=== PATIENT | female | born 1945 | race African-American/Black ===

== ENCOUNTER 2017-02-13 11:50 | Observation (INO) | payer MEDICARE, MEDICAID ==
[2017-02-13] VITALS (9 sets, daily range): BP systolic 95–161; BP diastolic 53–81; PULSE 75–91; RESP 16–18; TEMP 97.7–98.1; O2SAT 92–100
[~2017-02-13] VITALS: Ht 157.5 cm; Wt 72.0 kg
[~2017-02-13 11:50] MED LIST: ADVA250A INH; ASPI81 PO; CITA20TA4 PO; CLAR10TA7 PO; DILT240C7 PO; DUONI NEB; FERR324T4 PO; FLON0.053 EACH NARE; GLUC1000 PO; GNP3TAB PO; ISOS60 PO; KEPP1000 PO; LAMI25TA3 PO; LASI20TA PO; MAPA325T6 PO; MONT10TA2 PO; OMEP20TA39 PO; POLY99.0 EACH EYE; QUET400T PO; RISP3TAB23 PO; ROBISYP6 PO; SENN8.6T8 PO; STOO100C PO; TRUS2SOL LEFT EYE; VICT18IN SQ; VITA-13 PO
[2017-02-13] MEDS ORDERED: SODIUM CHLOR 0.9% 1000 ML INJ 1,000 ML IV ONE (12:01)
[2017-02-13 12:35] LABS: AUTOMATED NEUTROPHIL # 5.3 TH/MM3 (1.8-7.7); BASOPHIL % 0.6 % (0.0-2.0); EOSINOPHIL # 0.2 TH/MM3 (0-0.4); EOSINOPHIL % 2.6 % (0.0-4.0); HEMATOCRIT 41.5 % (35.0-46.0); HEMO FLAGS DIFF FINAL; LYMPH % 11.4 % (9.0-44.0); LYMPHOCYTE # 0.8 TH/MM3 (1.0-4.8); MEAN CELL VOLUME 92.4 FL (80.0-100.0); MEAN CORPUSCULAR HEMOGLOBIN 30.2 PG (27.0-34.0); MEAN CORPUSCULAR HGB CONC 32.7 % (32.0-36.0); MONO % 10.3 % (0.0-8.0); NEUT % 75.1 % (16.0-70.0); PLATELET COUNT 221 TH/MM3 (150-450); RED BLOOD COUNT 4.49 MIL/MM3 (4.00-5.30); RED CELL DISTRIBUTION WIDTH 14.1 % (11.6-17.2)
[2017-02-13 12:44] LABS: BACTERIA, URINE RARE /hpf; BLOOD, URINE NEG (NEG); COMMENT (UR) CATH-CULTURE IND; CULTURE IF INDICATED CATH CULTURE IND; GLUCOSE,URINE NEG (NEG); HYALINE CAST, URINE 22 /lpf (RARE); KETONE, URINE NEG (NEG); MUCUS URINE FEW /lpf (OCC); NITRITE,URINE NEG (NEG); PH, URINE 5.5 (5.0-8.5); SQUAMOUS EPITHELIAL CELL URINE 1 /hpf (0-5); URINE COLOR YELLOW (YELLW/STRAW)
[2017-02-13 12:45] LABS: APTT (PATIENT) 22.6 SEC (24.3-30.1); PROTHROMBIN TIME - PATIENT 10.8 SEC (9.8-11.6)
--- NOTE | 2017-02-13 12:58 | RADRPT ---
EXAM DATE/TIME: 02/13/2017 12:32 [facility] COMPARISON: CHEST SINGLE AP, May 14, 2015, 1:25. INDICATIONS : Syncope, fall, short of breath, palpitations MEDICAL HISTORY : unobtainable SURGICAL HISTORY : unobtainable ENCOUNTER: Initial ACUITY: 1 day PAIN SCORE: Non-responsive. LOCATION: Bilateral chest FINDINGS: A single view of the chest demonstrates the lungs to be symmetrically aerated without evidence of mas s, infiltrate or effusion. The cardiomediastinal contours revealed persistent borderline cardiomegal y.. Osseous structures are intact with degenerative changes of the bilateral glenohumeral joints.. CONCLUSION: No acute disease. No significant change has occurred. Jack Jacobo MD on February 13, 2017 at 12:56 Board Certified Radiologist. This report was verified electronically.
[2017-02-13 13:01] LABS: ALT (GPT) 12 U/L (10-53); ANION GAP 6 MEQ/L (5-15); AST (GOT) 8 U/L (15-37); BICARBONATE 25.8 MEQ/L (21.0-32.0); BLOOD UREA NITROGEN 9 MG/DL (7-18); CHLORIDE 110 MEQ/L (98-107); GLOMERULAR FILTRATION RATE 38 ML/MIN (>89); MAGNESIUM 2.2 MG/DL (1.5-2.5); POTASSIUM 4.2 MEQ/L (3.5-5.1); SODIUM (NA) 142 MEQ/L (136-145)
--- NOTE | 2017-02-13 13:03 | PD ---
HPI Chief Complaint: Syncope/Near-Syncope Time Seen by Provider: 12:03 Travel History International Travel<30 days: No Contact w/Intl Traveler<30days: No Traveled to known affect area: No History of Present Illness HPI 71-year-old female with a history of parents schizophrenia, seizure disorder, CAD that presents to the ED for evaluation of possible syncopal episode with seizure. History is limited as patient herself is a poor historian secondary to her schizophrenia. She cannot really give me a good history. Whenever I ask if she has a history of seizures she states no, she also does not appear to really know her medical history. Most of the history is obtained from the ambulance provider as well as ED nurse and paperwork from the long-term. Per report apparently patient was getting to stand up and she looked like she was falling asleep while standing and she had a syncopal episode. Apparently she did hit her head when she fell and afterwards she possibly had a seizure. She also defecated on herself. Per her report she apparently is noncompliant with her medications especially the seizure medications. Unclear as to why. She does live in assisted living facility. She is a full code. She states that she has pain "everywhere ". She does not appear to be in a lot of pain however and is able to move all joints with no obvious sign of acute disease. She does appear to have some bruising on the back of the head. She smells of feces. Again history is limited. She does take aspirin but no other blood thinners. Of note per ambulance patient did have some low blood pressures and her highest systolic was 95 with IV fluids. PFSH Past Medical History Anemia: Yes Arthritis: No Asthma: Yes Autoimmune Disease: No Blood Disorders: No Anxiety: Yes Depression: Yes Heart Rhythm Problems: No Cancer: No Cardiovascular Problems: Yes High Cholesterol: Yes Chemotherapy: Yes Chest Pain: Yes Congestive Heart Failure: No COPD: Yes Cerebrovascular Accident: Yes Coronary Artery Disease: Yes Dementia: Yes Diabetes: Yes Diminished Hearing: No Endocrine: No GERD: No Glaucoma: No Genitourinary: No Headaches: Yes Hepatitis: No Hiatal Hernia: No Hypertension: Yes Immune Disorder: No Kidney Stones: No Musculoskeletal: No Neurologic: No Psychiatric: Yes (hx of paranoid schizophrenia noted in earlier adm assmt) Reproductive: No Respiratory: Yes Immunizations Current: Yes Myocardial Infarction: Yes Radiation Therapy: No Renal Failure: No Schizophrenia: Yes (PARANOID WITH PSYCHOSIS) Seizures: Yes Sickle Cell Disease: No Sleep Apnea: No Thyroid Disease: No Ulcer: No Past Surgical History Abdominal Surgery: No AICD: No Cardiac Surgery: No Ear Surgery: No Endocrine Surgery: No Eye Surgery: No Genitourinary Surgery: No Gynecologic Surgery: No Joint Replacement: No Oral Surgery: No Pacemaker: No Thoracic Surgery: No Social History Alcohol Use: No Tobacco Use: No Substance Use: No Allergies-Medications (Allergen,Severity, Reaction): Coded Allergies: ramipril (Verified Allergy, Mild, ANGIOEDEMA, 02/13/17) Reported Meds & Prescriptions Reported Meds & Active Scripts Active Reported Vitamin D-1000 (Cholecalciferol) 1,000 Unit Tab 1,000 Units PO DAILY Victoza Inj (Liraglutide Inj) 18 Mg/3 Ml Pen 1.8 Mg SQ DAILY Trusopt Opth Drops (Dorzolamide HCl) 2% Soln 1 Drop LEFT EYE TID Singulair (Montelukast Sodium) 10 Mg Tab 10 Mg PO HS Senna-S 8.6-50 mg (Sennosides-Docusate Sodium) 8.6 Mg-50 Mg Tab Risperdal (Risperidone) 3 Mg Tab 3 Mg PO Q12HR Risperdal Consta Inj (Risperidone) 50 Mg/2 Ml Inj 50 Mg IM Q14D Quetiapine (Quetiapine Fumarate) 400 Mg Tab 400 Mg PO HS Metformin (Metformin HCl) 850 Mg Tab 850 Mg PO BIDPC With meals Melatonin 5 Mg Tab 3 Mg PO HS Lasix (Furosemide) 20 Mg Tab 20 Mg PO DAILY Lamictal (Lamotrigine) 150 Mg Tab 150 Mg PO BID Keppra (Levetiracetam) 750 Mg Tab 750 Mg PO BID Isosorbide Mononitrate 20 Mg Tab 60 Mg PO DAILY Take 2 doses 7 hours apart. Citalopram (Citalopram Hydrobromide) 20 Mg Tab 20 Mg PO DAILY Cardizem (Diltiazem HCl) 120 Mg Tab 120 Mg PO BID Aspirin 81 Mg Chew 81 Mg CHEW DAILY Tylenol (Acetaminophen) 325 Mg Tab 650 Mg PO Q6H PRN [abh topical gel ] TOPICAL Q6HR Review of Systems Except as stated in HPI: all other systems reviewed are Neg Physical Exam Narrative GENERAL: SKIN: Warm and dry. HEAD: Atraumatic. Normocephalic. EYES: Pupils equal and round. No scleral icterus. No injection or drainage. ENT: No nasal bleeding or discharge. Mucous membranes pink and moist. Tongue is midline. No uvula deviation. NECK: Trachea midline. No JVD. CARDIOVASCULAR: Regular rate and rhythm. No murmurs, S3, S4. RESPIRATORY: No accessory muscle use. Clear to auscultation. Breath sounds equal bilaterally. GASTROINTESTINAL: Abdomen soft, non-tender, nondistended. Hepatic and splenic margins not palpable. MUSCULOSKELETAL: Extremities without clubbing, cyanosis, or edema. No obvious deformities. Full range of motion of the upper and lower extremities but no obvious sign of deformity. 2+ pulses bilaterally. No obvious lumbar, thoracic spine tenderness to palpation. NEUROLOGICAL: Awake and alert and oriented times 2. No obvious cranial nerve deficits. Motor grossly within normal limits. Five out of 5 muscle strength in the arms and legs. Normal speech. PSYCHIATRIC: Appropriate mood and affect; insight and judgment minimal. Data Data Last Documented VS Vital Signs Date Time Temp Pulse Resp B/P (MAP) Pulse Ox O2 Delivery O2 Flow Rate FiO2 02/13/17 14:33 97.8 76 17 125/68 (87) 100 Room Air Orders Orders Electrocardiogram (02/13/17 12:01) Complete Blood Count With Diff (02/13/17 12:01) Comprehensive Metabolic Panel (02/13/17 12:01) Magnesium (Mg) (02/13/17 12:01) Ckmb (Isoenzyme) Profile (02/13/17 12:01) Troponin I (02/13/17 12:01) Act Partial Throm Time (Ptt) (02/13/17 12:01) Prothrombin Time / Inr (Pt) (02/13/17 12:01) Urinalysis - C+S If Indicated (02/13/17 12:01) Chest, Single Ap (02/13/17 12:01) Ct Brain W/O Iv Contrast(Rout) (02/13/17 12:01) Ct Cerv Spine W/O Contrast (02/13/17 12:01) Ecg Monitoring (02/13/17 12:01) Iv Access Insert/Monitor (02/13/17 12:01) Oximetry (02/13/17 12:01) Sodium Chlor 0.9% 1000 Ml Inj (Ns 1000 M (02/13/17 12:01) Orthostatic Vital Signs (02/13/17 12:01) Levetiracetam (02/13/17 12:01) Lamictal (Lamotrigine) (02/13/17 12:01) C Diff Toxin Pcr (02/13/17 12:24) Urine Culture (02/13/17 12:08) Hip, Uni(Ap&Lat) W Ap Pelvis (02/13/17 ) Hip, Uni(Ap&Lat) Wo Ap Pelvis (02/13/17 ) Spine, Lumbar Comp W/Obliq (02/13/17 ) CKMB (02/13/17 12:08) CKMB% (02/13/17 12:08) Ondansetron Inj (Zofran Inj) (02/13/17 13:45) Place In Observation (02/13/17 ) Vital Signs (Adult) Q4H (02/13/17 15:20) Activity Oob Ad Shell (02/13/17 15:20) Bedside Glucose FERDINAND.CSUGAR (02/13/17 15:20) Nocturnist Physician / Telemetry .CONTINUOUS (02/13/17 15:20) Intake + Output FERDINAND.QSHIFT (02/13/17 15:20) Notify Dr: Other (02/13/17 15:20) Diet Npo (02/13/17 Dinner) Sodium Chlor 0.9% 1000 Ml Inj (Ns 1000 M (02/13/17 15:20) Sodium Chloride 0.9% Flush (Ns Flush) (02/13/17 15:30) Sodium Chloride 0.9% Flush (Ns Flush) (02/13/17 21:00) Acetaminophen (Tylenol) (02/13/17 15:30) Ondansetron Inj (Zofran Inj) (02/13/17 15:30) Basic Metabolic Panel (Bmp) (02/14/17 06:00) Comprehensive Metabolic Panel (02/14/17 06:00) Creatine Kinase (Cpk) (02/13/17 15:20) Creatine Kinase (Cpk) (02/13/17 21:20) Troponin I (02/13/17 15:20) Troponin I (02/13/17 21:20) Resp Oxygen Benjamin C Titrat 1-4 L (02/13/17 ) Speech Therapy Consult-Eval/Tx (02/13/17 15:20) Case Management Consult (02/13/17 15:20) Scd Bilateral/Knee High FERDINAND.BID (02/13/17 15:20) Naloxone Inj (Narcan Inj) (02/13/17 15:30) Docusate Sodium-Senna (Misty-Colace) (02/13/17 21:00) Magnesium Hydroxide Liq (Milk Of Magnesi (02/13/17 15:30) Sennosides (Senokot) (02/13/17 15:30) Bisacodyl Supp (Dulcolax Supp) (02/13/17 15:30) Lactulose Liq (Lactulose Liq) (02/13/17 15:30) Eeg Study (02/13/17 ) Admit Order (Ed Use Only) (02/13/17 15:24) Ot Request For Service (02/13/17 15:25) Pt Request For Service (02/13/17 15:25) Insulin Human Reg Supp Scale (Novolin R (02/13/17 17:00) Labs Laboratory Tests Test 02/13/17 12:08 White Blood Count 7.0 TH/MM3 Red Blood Count 4.49 MIL/MM3 Hemoglobin 13.6 GM/DL Hematocrit 41.5 % Mean Corpuscular Volume 92.4 FL Mean Corpuscular Hemoglobin 30.2 PG Mean Corpuscular Hemoglobin Concent 32.7 % Red Cell Distribution Width 14.1 % Platelet Count 221 TH/MM3 Mean Platelet Volume 7.2 FL Neutrophils (%) (Auto) 75.1 % Lymphocytes (%) (Auto) 11.4 % Monocytes (%) (Auto) 10.3 % Eosinophils (%) (Auto) 2.6 % Basophils (%) (Auto) 0.6 % Neutrophils # (Auto) 5.3 TH/MM3 Lymphocytes # (Auto) 0.8 TH/MM3 Monocytes # (Auto) 0.7 TH/MM3 Eosinophils # (Auto) 0.2 TH/MM3 Basophils # (Auto) 0.0 TH/MM3 CBC Comment DIFF FINAL Differential Comment Prothrombin Time 10.8 SEC Prothromb Time International Ratio 1.0 RATIO Activated Partial Thromboplast Time 22.6 SEC Urine Color YELLOW Urine Turbidity HAZY Urine pH 5.5 Urine Specific [place] 1.013 Urine Protein 30 mg/dL Urine Glucose (UA) NEG mg/dL Urine Ketones NEG mg/dL Urine Occult Blood NEG Urine Nitrite NEG Urine Bilirubin NEG Urine Urobilinogen 2.0 MG/DL Urine Leukocyte Esterase NEG Urine RBC LESS THAN 1 /hpf Urine WBC 1 /hpf Urine Squamous Epithelial Cells 1 /hpf Urine Bacteria RARE /hpf Urine Hyaline Casts 22 /lpf Urine Mucus FEW /lpf Microscopic Urinalysis Comment CATH-CULTURE IND Stool C. difficile Toxin (PCR) NEGATIVE Stl C. difficile Toxin Epiderm 027 PRESUMPTIVE NEGATIVE Blood Urea Nitrogen 9 MG/DL Creatinine 1.62 MG/DL Random Glucose 111 MG/DL Total Protein 6.8 GM/DL Albumin 2.8 GM/DL Calcium Level 8.6 MG/DL Magnesium Level 2.2 MG/DL Alkaline Phosphatase 81 U/L Aspartate Amino Transf (AST/SGOT) 8 U/L Alanine Aminotransferase (ALT/SGPT) 12 U/L Total Bilirubin 0.2 MG/DL Sodium Level 142 MEQ/L Potassium Level 4.2 MEQ/L Chloride Level 110 MEQ/L Carbon Dioxide Level 25.8 MEQ/L Anion Gap 6 MEQ/L Estimat Glomerular Filtration Rate 38 ML/MIN Total Creatine Kinase 139 U/L Creatine Kinase MB 1.6 NG/ML Troponin I LESS THAN 0.02 NG/ML MDM Medical Decision Making Medical Screen Exam Complete: Yes Emergency Medical Condition: Yes Medical Record Reviewed: Yes Interpretation(s) CBC & BMP Diagram 02/13/17 12:08 Total Protein 6.8, Albumin 2.8 L, Calcium Level 8.6, Magnesium Level 2.2, Alkaline Phosphatase 81, Aspartate Amino Transf (AST/SGOT) 8 L, Alanine Aminotransferase (ALT/SGPT) 12, Total Bilirubin 0.[address] 02/13/17 1201 Signed Impressions: Service Date/Time: Monday, February 13, 2017 14:10 - CONCLUSION: Stable and normal for age intracranial contents. Sinus disease with opacification of multiple ethmoid air cells and air-fluid levels posteriorly in the bilateral maxillary sinuses. Jack Jacobo MD Chest X-Ray 02/13/17 1201 Signed Impressions: Service Date/Time: Monday, February 13, 2017 12:32 - CONCLUSION: No acute disease. No significant change has occurred. Jack Jacobo MD Cervical Spine CT 02/13/17 1201 Signed Impressions: Service Date/Time: Monday, February 13, 2017 14:10 - CONCLUSION: No fracture subluxation. Marshall Willingham MD Lumbar Spine X-Ray 02/13/17 Signed Impressions: Service Date/Time: Monday, February 13, 2017 13:24 - CONCLUSION: Degenerative changes without fracture. Marshall Willingham MD Hip and Pelvis X-Ray 02/13/17 Signed Impressions: Service Date/Time: Monday, February 13, 2017 13:18 - CONCLUSION: No acute fracture. Marshall Willingham MD Hip X-Ray 02/13/17 Signed Impressions: Service Date/Time: Monday, February 13, 2017 13:18 - CONCLUSION: No acute fracture. Marshall Willingham MD UA negative EKG shows sinus rythm with no sign of acute ischemia or arrythmia. Read by me and attending. troponin and CKMB negative Differential Diagnosis Syncope versus seizure versus altered mental status versus head injury versus confusion versus presyncope versus coronary artery disease versus C. difficile versus noncompliance Narrative Course 71-year-old female that presents to the ED for evaluation of syncope and possible seizure. Patient was properly examined and was found to have signs and symptoms of systems possible syncope with seizure. History is somewhat limited as patient herself is not a good historian. Most of the history is obtained through the ambulance report as well as ED nurse and paperwork from the assisted living facility. Labs and imaging were ordered. Patient was given another bolus of fluid here. Labs and imaging showed no sign of acute disease. Patient somewhat confused and again history is limited. Concerning for syncope. The recommend admission for syncope. Case discussed with my attending Dr. Keene who agrees that patient should be admitted for syncope. Case discussed with Dr. Jarvis who agrees to admission. Procedures EKG Prior to Arrival: No Diagnosis Primary Impression: Syncope Qualified Codes: R55 - Syncope and collapse Additional Impressions: Paranoid schizophrenia Seizure Admitting Information Admitting Physician Requests: Eusebio Quintanilla Feb 13, 2017 13:03
[2017-02-13 13:04] LABS: ALKALINE PHOSPHATASE 81 U/L (45-117); CREATINE KINASE 139 U/L (26-192); TOTAL BILIRUBIN ADULT 0.2 MG/DL (0.2-1.0)
[2017-02-13 13:17] LABS: CKMB 1.6 NG/ML (0.5-3.6)
[2017-02-13] MEDS ORDERED: ONDANSETRON HCL 4 MG/2 ML VIAL IV PUSH ONE (13:45)
--- NOTE | 2017-02-13 14:14 | RADRPT ---
EXAM DATE/TIME: 02/13/2017 13:18 [facility] COMPARISON: No previous studies available for comparison. INDICATIONS : Syncopal fall unresponsive. MEDICAL HISTORY : Unobtainable. SURGICAL HISTORY : Unobtainable. ENCOUNTER: Initial ACUITY: 1 day PAIN SCORE: Non-responsive. LOCATION: Left hip FINDINGS: A two view examination of the left hip was performed. The primary and secondary trabecular pattern o f the femoral neck is intact. The hip joint is of normal width without significant sclerosis or bony hypertrophy. The acetabulum is grossly intact. CONCLUSION: No acute fracture. Marshall Willingham MD on February 13, 2017 at 14:12 Board Certified Radiologist. This report was verified electronically.
--- NOTE | 2017-02-13 14:14 | RADRPT ---
EXAM DATE/TIME: 02/13/2017 13:18 [facility] COMPARISON: No previous studies available for comparison. INDICATIONS : Syncopal fall, unresponsive. MEDICAL HISTORY : Unobtainable. SURGICAL HISTORY : Unobtainable. ENCOUNTER: Initial ACUITY: 1 day PAIN SCORE: Non-responsive. LOCATION: Right hip FINDINGS: Examination of the right hip was performed with AP Pelvis. The primary and secondary trabecular fredo cindi of the femoral neck is intact. The hip joint is of normal width without significant sclerosis or bony hypertrophy. The acetabulum is grossly intact. CONCLUSION: No acute fracture. Marshall Willingham MD on February 13, 2017 at 14:12 Board Certified Radiologist. This report was verified electronically.
--- NOTE | 2017-02-13 14:15 | RADRPT ---
EXAM DATE/TIME: 02/13/2017 13:24 [facility] COMPARISON: No previous studies available for comparison. INDICATIONS : Syncopal fall. Unresponsive. MEDICAL HISTORY : Unobtainable. SURGICAL HISTORY : Unobtainable. ENCOUNTER: Initial ACUITY: 1 day PAIN SCORE: Non-responsive. LOCATION: lumbar spine. FINDINGS: There are five non-rib bearing vertebral bodies. The vertebral bodies are in normal alignment withou t evidence of subluxation or scoliosis. Slight levocurvature. Diffuse degenerative changes greatest along the upper lumbar spine. Degenerative changes of lower facets bilaterally. Osteopenia. No fract ure is identified. CONCLUSION: Degenerative changes without fracture. Marshall Willingham MD on February 13, 2017 at 14:13 Board Certified Radiologist. This report was verified electronically.
--- NOTE | 2017-02-13 14:23 | RADRPT ---
EXAM DATE/TIME: 02/13/2017 14:10 [facility] COMPARISON: CT BRAIN W/O CONTRAST, May 26, 2014, 15:45. INDICATIONS : Head pain due to dizziness. RADIATION DOSE: 33.95 CTDIvol (mGy) MEDICAL HISTORY : Seizures. Dementia. Diabetes mellitus type 2.Cardiac, CVA, HTN SURGICAL HISTORY : None. ENCOUNTER: Initial ACUITY: 1 day PAIN SCALE: 3/10 LOCATION: Bilateral cranial TECHNIQUE: Multiple contiguous axial images were obtained of the head. Using automated exposure control and adj ustment of the mA and/or kV according to patient size, radiation dose was kept as low as reasonably a chievable to obtain optimal diagnostic quality images. DICOM format image data is available electro nically for review and comparison. FINDINGS: CEREBRUM: The ventricles are normal for age. No evidence of midline shift, mass lesion, hemorrhage or acute in farction. No extra-axial fluid collections are seen. POSTERIOR FOSSA: The cerebellum and brainstem are intact. The 4th ventricle is midline. The cerebellopontine angle i s unremarkable. EXTRACRANIAL: The visualized portion of the orbits is intact. Opacification of multiple ethmoid sinus air cells wit h air fluid levels in the posterior aspect of bilateral maxillary sinuses SKULL: The calvaria is intact. No evidence of skull fracture. CONCLUSION: Stable and normal for age intracranial contents. Sinus disease with opacification of multiple ethmoid air cells and air-fluid levels posteriorly in the bilateral maxillary sinuses. Jack Jacobo MD on February 13, 2017 at 14:20 Board Certified Radiologist. This report was verified electronically.
[2017-02-13 14:46] LABS: C. DIFF EPI 027 PRESUMPTIVE NEGATIVE (NEGATIVE)
[2017-02-13] MEDS ORDERED: ABH TOPICAL (15:00)
--- NOTE | 2017-02-13 15:00 | RADRPT ---
EXAM DATE/TIME: 02/13/2017 14:10 [facility] COMPARISON: No previous studies available for comparison. INDICATIONS : Dizziness with neck pain. RADIATION DOSE: 21.13 CTDIvol (mGy) MEDICAL HISTORY : Cardiovascular disease. Dementia. Seizures.HTN, TB, Diabetes. SURGICAL HISTORY : None. ENCOUNTER: Initial ACUITY: 1 day PAIN SCALE: 4/10 LOCATION: Bilateral neck region. TECHNIQUE: Volumetric scanning of the cervical spine was performed. Multiplanar reconstructions in the sagittal, coronal and oblique axial planes were performed. Using automated exposure control and adjustment o f the mA and/or kV according to patient size, radiation dose was kept as low as reasonably achievable to obtain optimal diagnostic quality images. DICOM format image data is available electronically f or review and comparison. FINDINGS: VERTEBRAE: Normal vertebral body height. Multilevel degenerative changes. ALIGNMENT: No evidence of subluxation. C2-C3: The bony spinal canal is normal in size. No evidence of disc bulge or herniation. The neural forami na are bilaterally patent. C3-C4: The bony spinal canal is normal in size. No evidence of disc bulge or herniation. The neural forami na are bilaterally patent. C4-C5: Broad-based posterior disc osteophyte complex. The neural foramina are bilaterally patent. C5-C6: Broad-based posterior disc osteophyte complex. The neural foramina are bilaterally patent. C6-C7: Broad-based posterior disc osteophyte complex. The neural foramina are bilaterally patent. C7-T1: The bony spinal canal is normal in size. No evidence of disc bulge or herniation. The neural forami na are bilaterally patent. CONCLUSION: No fracture subluxation. Marshall Willingham MD on February 13, 2017 at 14:53 Board Certified Radiologist. This report was verified electronically.
[2017-02-13] MEDS ORDERED: ASPI81CH CHEW (15:04)
[2017-02-13] MEDS ORDERED: ISOS20TA PO (15:04)
[2017-02-13] MEDS ORDERED: CARD120T4 PO (15:04)
[2017-02-13] MEDS ORDERED: TYLE325T PO (15:04)
[2017-02-13] MEDS ORDERED: LAMO150 PO (15:04)
[2017-02-13] MEDS ORDERED: KEPP750T PO (15:04)
[2017-02-13] MEDS ORDERED: CITA20TA4 PO (15:04)
[2017-02-13] MEDS ORDERED: METF850T PO (15:23)
[2017-02-13] MEDS ORDERED: RISP50P IM (15:23)
[2017-02-13] MEDS ORDERED: RISP3 PO (15:23)
[2017-02-13] MEDS ORDERED: SENN8.6T19 (15:23)
[2017-02-13] MEDS ORDERED: TRUS2SOL LEFT EYE (15:23)
[2017-02-13] MEDS ORDERED: QUET1TAB11 PO (15:23)
[2017-02-13] MEDS ORDERED: VITA1000 PO (15:23)
[2017-02-13] MEDS ORDERED: MONT10TA2 PO (15:23)
[2017-02-13] MEDS ORDERED: VICT18IN SQ (15:23)
[2017-02-13] MEDS ORDERED: FURO1TAB62 PO (15:23)
[2017-02-13] MEDS ORDERED: MELA5TAB15 PO (15:23)
--- NOTE | 2017-02-13 15:24 | HHI.HP ---
HPI Service [facility] Primary Care Physician Tang Ansari MD Admission Diagnosis Diagnoses: Chief Complaint: Syncope and Seizure Travel History International Travel<30 Days: No Contact w/Intl Traveler <30 Da: No Traveled to Known Affected Are: No History of Present Illness This is a pleasant 71 y/o Female with Schizophrenia, Seizure disorder, CAD, who came to ER for evaluation of Probable syncope and seizure, History is limited as patient herself is a poor historian secondary to her schizophrenia. She cannot really give me a good history. Most of the history is obtained from the ambulance provider as well as ED nurse and paperwork from the detention. Per report apparently patient was getting to stand up and she looked like she was falling asleep while standing and she had a syncopal episode. Apparently she did hit her head when she fell and afterwards she possibly had a seizure. She also defecated on herself. Per her report she apparently is noncompliant with her medications especially the seizure medications. Unclear as to why. She does live in assisted living facility. She is a full code. She states that she has pain "everywhere ". She does not appear to be in a lot of pain however and is able to move all joints with no obvious sign of acute disease. She does appear to have some bruising on the back of the head. She smells of feces. Again history is limited. She does take aspirin but no other blood thinners. Of note per ambulance patient did have some low blood pressures and her highest systolic was 95 with IV fluids. seen in Emergency room stable Lethargic but easy to arouse. Review of Systems Constitutional: DENIES: Fever, Chills, Change in appetite Endocrine: DENIES: Heat/cold intolerance Eyes: DENIES: Blurred vision, Eye pain Except as stated in HPI: all other systems reviewed are Neg Past Family Social History Past Medical History Anemia Asthma Anxiety disorder Depression CAD Hyperlipidemia Chemotherapy COPD CVA Dementia DM II Hypertension Seizure disorder Past Surgical History No past Surgical History Reported Medications Reported Meds & Active Scripts Active Reported Lamictal (Lamotrigine) 150 Mg Tab 150 Mg PO BID Keppra (Levetiracetam) 750 Mg Tab 750 Mg PO BID Isosorbide Mononitrate 20 Mg Tab 60 Mg PO DAILY Take 2 doses 7 hours apart. Citalopram (Citalopram Hydrobromide) 20 Mg Tab 20 Mg PO DAILY Cardizem (Diltiazem HCl) 120 Mg Tab 120 Mg PO BID Aspirin 81 Mg Chew 81 Mg CHEW DAILY Tylenol (Acetaminophen) 325 Mg Tab 650 Mg PO Q6H PRN [abh topical gel ] TOPICAL Q6HR Allergies: Coded Allergies: ramipril (Verified Allergy, Mild, ANGIOEDEMA, 02/13/17) Active Ordered Medications Last Impressions Head CT 02/13/17 1201 Signed Impressions: Service Date/Time: Monday, February 13, 2017 14:10 - CONCLUSION: Stable and normal for age intracranial contents. Sinus disease with opacification of multiple ethmoid air cells and air-fluid levels posteriorly in the bilateral maxillary sinuses. Jack Jacobo MD Chest X-Ray 02/13/17 1201 Signed Impressions: Service Date/Time: Monday, February 13, 2017 12:32 - CONCLUSION: No acute disease. No significant change has occurred. Jack Jacobo MD Cervical Spine CT 02/13/17 1201 Signed Impressions: Service Date/Time: Monday, February 13, 2017 14:10 - CONCLUSION: No fracture subluxation. Marshall Willingham MD Lumbar Spine X-Ray 02/13/17 0000 Signed Impressions: Service Date/Time: Monday, February 13, 2017 13:24 - CONCLUSION: Degenerative changes without fracture. Marshall Willingham MD Hip and Pelvis X-Ray 02/13/17 0000 Signed Impressions: Service Date/Time: Monday, February 13, 2017 13:18 - CONCLUSION: No acute fracture. Marshall Willingham MD Hip X-Ray 02/13/17 0000 Signed Impressions: Service Date/Time: Monday, February 13, 2017 13:18 - CONCLUSION: No acute fracture. Marshall Willingham MD Family History difficult to ask at this time. Social History No toxic habits Lives in an [facility] Physical Exam Vital Signs Vital Signs Date Time Temp Pulse Resp B/P (MAP) Pulse Ox O2 Delivery O2 Flow Rate FiO2 02/13/17 14:33 97.8 76 17 125/68 (87) 100 Room Air 02/13/17 12:20 81 18 95/58 (70) 86 18 113/64 (80) 02/13/17 12:03 18 100 Room Air 02/13/17 12:02 97.8 88 16 108/53 (71) 100 02/13/17 12:02 89 17 100 Room Air Physical Exam GENERAL: Obese patient lethargic. SKIN: Warm and dry. HEAD: Atraumatic. Normocephalic. EYES: Pupils equal and round. No scleral icterus. No injection or drainage. ENT: No nasal bleeding or discharge. Mucous membranes pink and moist. Tongue is midline. No uvula deviation. NECK: Trachea midline. No JVD. CARDIOVASCULAR: Regular rate and rhythm. No murmurs, S3, S4. RESPIRATORY: No accessory muscle use. Clear to auscultation. Breath sounds equal bilaterally. GASTROINTESTINAL: Abdomen soft, non-tender, nondistended. Hepatic and splenic margins not palpable. MUSCULOSKELETAL: Extremities without clubbing, cyanosis, or edema. No obvious deformities. Full range of motion of the upper and lower extremities but no obvious sign of deformity. 2+ pulses bilaterally. No obvious lumbar, thoracic spine tenderness to palpation. NEUROLOGICAL: at this time lethargic but easy to arouse. PSYCHIATRIC: difficult to evaluate Laboratory Laboratory Tests Test 02/13/17 12:08 White Blood Count 7.0 Red Blood Count 4.49 Hemoglobin 13.6 Hematocrit 41.5 Mean Corpuscular Volume 92.4 Mean Corpuscular Hemoglobin 30.2 Mean Corpuscular Hemoglobin Concent 32.7 Red Cell Distribution Width 14.1 Platelet Count 221 Mean Platelet Volume 7.2 Neutrophils (%) (Auto) 75.1 Lymphocytes (%) (Auto) 11.4 Monocytes (%) (Auto) 10.3 Eosinophils (%) (Auto) 2.6 Basophils (%) (Auto) 0.6 Neutrophils # (Auto) 5.3 Lymphocytes # (Auto) 0.8 Monocytes # (Auto) 0.7 Eosinophils # (Auto) 0.2 Basophils # (Auto) 0.0 CBC Comment DIFF FINAL Differential Comment Prothrombin Time 10.8 Prothromb Time International Ratio 1.0 Activated Partial Thromboplast Time 22.6 Urine Color YELLOW Urine Turbidity HAZY Urine pH 5.5 Urine Specific [place] 1.013 Urine Protein 30 Urine Glucose (UA) NEG Urine Ketones NEG Urine Occult Blood NEG Urine Nitrite NEG Urine Bilirubin NEG Urine Urobilinogen 2.0 Urine Leukocyte Esterase NEG Urine RBC LESS THAN 1 Urine WBC 1 Urine Squamous Epithelial Cells 1 Urine Bacteria RARE Urine Hyaline Casts 22 Urine Mucus FEW Microscopic Urinalysis Comment CATH-CULTURE IND Stool C. difficile Toxin (PCR) NEGATIVE Stl C. difficile Toxin Epiderm 027 PRESUMPTIVE NEGATIVE Blood Urea Nitrogen 9 Creatinine 1.62 Random Glucose 111 Total Protein 6.8 Albumin 2.8 Calcium Level 8.6 Magnesium Level 2.2 Alkaline Phosphatase 81 Aspartate Amino Transf (AST/SGOT) 8 Alanine Aminotransferase (ALT/SGPT) 12 Total Bilirubin 0.2 Sodium Level 142 Potassium Level 4.2 Chloride Level 110 Carbon Dioxide Level 25.8 Anion Gap 6 Estimat Glomerular Filtration Rate 38 Total Creatine Kinase 139 Creatine Kinase MB 1.6 Troponin I LESS THAN 0.02 Date/Time Source Procedure Growth Status 02/13/17 12:08 Urine Catheterized Urine Urine Culture Pending Received Result Diagram: 02/13/17 1208 02/13/17 1208 Imaging Last Impressions Head CT 02/13/17 1201 Signed Impressions: Service Date/Time: Monday, February 13, 2017 14:10 - CONCLUSION: Stable and normal for age intracranial contents. Sinus disease with opacification of multiple ethmoid air cells and air-fluid levels posteriorly in the bilateral maxillary sinuses. Jack Jacobo MD Chest X-Ray 02/13/17 1201 Signed Impressions: Service Date/Time: Monday, February 13, 2017 12:32 - CONCLUSION: No acute disease. No significant change has occurred. Jack Jacobo MD Cervical Spine CT 02/13/17 1201 Signed Impressions: Service Date/Time: Monday, February 13, 2017 14:10 - CONCLUSION: No fracture subluxation. Marshall Willingham MD Lumbar Spine X-Ray 02/13/17 0000 Signed Impressions: Service Date/Time: Monday, February 13, 2017 13:24 - CONCLUSION: Degenerative changes without fracture. Marshall Willingham MD Hip and Pelvis X-Ray 02/13/17 0000 Signed Impressions: Service Date/Time: Monday, February 13, 2017 13:18 - CONCLUSION: No acute fracture. Marshall Willingham MD Hip X-Ray 02/13/17 0000 Signed Impressions: Service Date/Time: Monday, February 13, 2017 13:18 - CONCLUSION: No acute fracture. MD No Lara VTE Risk Assessment Caprini VTE Risk Assessment: Mod/High Risk (score >= 2) Caprini Risk Assessment Model Point Value = 1 Point Value = 2 Point Value = 3 Point Value = 5 Age 41-60 Minor surgery BMI > 25 kg/m2 Swollen legs Varicose veins or History of unexplained or recurrent spontaneous Oral contraceptives or hormone replacement Sepsis (< 1 month) Serious lung disease, including pneumonia (< 1 month) Abnormal pulmonary function Acute myocardial infarction Congestive heart failure (< 1 month) History of inflammatory bowel disease Medical patient at bed rest Age 61-74 Arthroscopic surgery Major open surgery (> 45 min) Laparoscopic surgery (> 45 min) Malignancy Confined to bed (> 72 hours) Immobilizing plaster cast Central venous access Age >= 75 History of VTE Family history of VTE Factor V Leiden Prothrombin [id number] Lupus anticoagulant Anticardiolipin antibodies Elevated serum homocysteine Heparin-induced thrombocytopenia Other congenital or acquired thrombophilia Stroke (< 1 month) Elective arthroplasty Hip, pelvis, or leg fracture Acute spinal cord injury (< 1 month) Prophylaxis Regimen Total Risk Factor Score Risk Level Prophylaxis Regimen 0-1 Low Early ambulation 2 Moderate Order ONE of the following: *Sequential Compression Device (SCD) *Heparin 5000 units SQ BID 3-4 Higher Order ONE of the following medications: *Heparin 5000 units SQ TID *Enoxaparin/Lovenox 40 mg SQ daily (WT < 150 kg, CrCl > 30 mL/min) *Enoxaparin/Lovenox 30 mg SQ daily (WT < 150 kg, CrCl > 10-29 mL/min) *Enoxaparin/Lovenox 30 mg SQ BID (WT < 150 kg, CrCl > 30 mL/min) AND/OR *Sequential Compression Device (SCD) 5 or more Highest Order ONE of the following medications: *Heparin 5000 units SQ TID (Preferred with Epidurals) *Enoxaparin/Lovenox 40 mg SQ daily (WT < 150 kg, CrCl > 30 mL/min) *Enoxaparin/Lovenox 30 mg SQ daily (WT < 150 kg, CrCl > 10-29 mL/min) *Enoxaparin/Lovenox 30 mg SQ BID (WT < 150 kg, CrCl > 30 mL/min) AND *Sequential Compression Device (SCD) Assessment and Plan Assessment and Plan 1. Syncope and probable seizure disorder, will hold her home medicines and follow Psychiatry and Neurology specialist recommendations asked for PT, OT and Speech therapy evaluation, Clinic Administrator following continue supportive care. IV fluids, NPO at this time. Cardiac enzymes and cardiac monitoring. 2. COPD on Bronchodilator, Mucolytic incentive spirometry 3. Depression/Schizophrenia/Dementia asked for lamotrigine and levetiracetam psychiatry specialist following 4. Hyperlipidemia by history 5. CVA by history 6. DM II continue sliding scale. 7. Hypertension at this time Hypotensive on hold antihypertensives. 8. acute kidney injury IV fluids and follow DVT prophylaxis Heparin. Discussed Condition With Eusebio Colby Guillermo MD Feb 13, 2017 15:24
[2017-02-13] MEDS ORDERED: SENNOSIDES 8.6 MG TAB PO PRN (15:30)
[2017-02-13] MEDS ORDERED: NALOXONE HCL 0.4 MG/ML AMP IV PUSH PRN (15:30)
[2017-02-13] MEDS ORDERED: SODIUM CHLORIDE 0.9% FLUSH 10 ML FLUSH IV FLUSH PRN (15:30)
[2017-02-13] MEDS ORDERED: BISACODYL 10 MG SUPP RECTAL PRN (15:30)
[2017-02-13] MEDS ORDERED: LACTULOSE SYRUP 20 GM/30 ML CUP PO PRN (15:30)
[2017-02-13] MEDS ORDERED: ACETAMINOPHEN 325 MG TAB PO PRN (15:30)
[2017-02-13] MEDS ORDERED: ONDANSETRON HCL 4 MG/2 ML VIAL IVP PRN (15:30)
[2017-02-13] MEDS ORDERED: MAGNESIUM HYDROXIDE SUSP 30 ML CUP PO PRN (15:30)
[2017-02-13] MEDS: INSULIN NovoLIN REGULAR SUPPLEMENTAL SCALE SQ SCH ×2 (17:00→20:46)
[2017-02-13] MEDS ORDERED: PILL SPLITTER OTHER PRN (17:15)
[2017-02-13] MEDS: SODIUM CHLOR 0.9% 1000 ML INJ 1,000 ML IV SCH (17:30)
[2017-02-13] MEDS: DORZOLAMIDE 2% OPTH SOLN 200 DROP/10 ML BTLO LEFT EYE SCH (17:30)
[2017-02-13 20:07] LABS: CREATINE KINASE 133 U/L (26-192)
[2017-02-13] MEDS: SODIUM CHLORIDE 0.9% FLUSH 10 ML FLUSH IV FLUSH SCH (20:45)
[2017-02-13] MEDS: MONTELUKAST SODIUM 10 MG TAB PO SCH (20:46)
[2017-02-13] MEDS: DOCUSATE SODIUM 50 MG/SENNA 8.6 MG TAB PO SCH (20:46)
[2017-02-13] MEDS: levETIRAcetam 250 MG TAB PO SCH (20:46)
[2017-02-13] MEDS ORDERED: risperiDONE 3 MG TAB PO SCH (21:00)
[2017-02-13] MEDS ORDERED: QUEtiapine FUMARATE 200 MG TAB PO SCH (21:00)
[2017-02-13] MEDS ORDERED: lamoTRIgine 100 MG TAB PO SCH (21:00)
[2017-02-13] MEDS ORDERED: DILTIAZEM-CD 120 MG CAP ER PO SCH (21:00)
[2017-02-14] VITALS (13 sets, daily range): BP systolic 132–168; BP diastolic 49–87; PULSE 67–101; RESP 17–20; TEMP 98.1–98.8; O2SAT 95–99
[2017-02-14 01:10] LABS: CREATINE KINASE 132 U/L (26-192)
[2017-02-14] MEDS: SODIUM CHLOR 0.9% 1000 ML INJ 1,000 ML IV SCH ×2 (05:03→19:56)
[2017-02-14] MEDS: INSULIN NovoLIN REGULAR SUPPLEMENTAL SCALE SQ SCH ×4 (08:00→21:00)
[2017-02-14 08:44] LABS: ANION GAP 4 MEQ/L (5-15); AST (GOT) 9 U/L (15-37); BICARBONATE 27.3 MEQ/L (21.0-32.0); BLOOD UREA NITROGEN 8 MG/DL (7-18); CHLORIDE 110 MEQ/L (98-107); GLOMERULAR FILTRATION RATE 50 ML/MIN (>89); SODIUM (NA) 141 MEQ/L (136-145)
[2017-02-14 08:45] LABS: ALT (GPT) 10 U/L (10-53)
[2017-02-14 08:47] LABS: ALKALINE PHOSPHATASE 89 U/L (45-117); TOTAL BILIRUBIN ADULT 0.3 MG/DL (0.2-1.0)
[2017-02-14] MEDS ORDERED: ISOSORBIDE MONONITRATE 60 MG TAB PO SCH (09:00)
[2017-02-14] MEDS: CHOLECALCIFEROL (VIT D3) 1000 UNIT TAB PO SCH (10:30)
[2017-02-14] MEDS: FUROSEMIDE 20 MG TAB PO SCH (10:31)
[2017-02-14] MEDS: ASPIRIN 81 MG CHEW TAB CHEW SCH (10:31)
[2017-02-14] MEDS: CITALOPRAM HYDROBROMIDE 20 MG TAB PO SCH (10:31)
[2017-02-14] MEDS: DOCUSATE SODIUM 50 MG/SENNA 8.6 MG TAB PO SCH ×2 (10:31→23:18)
[2017-02-14] MEDS: levETIRAcetam 250 MG TAB PO SCH ×2 (10:32→23:16)
[2017-02-14] MEDS: SODIUM CHLORIDE 0.9% FLUSH 10 ML FLUSH IV FLUSH SCH ×2 (10:32→23:15)
[2017-02-14] MEDS: DORZOLAMIDE 2% OPTH SOLN 200 DROP/10 ML BTLO LEFT EYE SCH ×3 (10:33→17:52)
--- NOTE | 2017-02-14 11:18 | HHI.PR ---
Subjective Remarks This is a pleasant 71 y/o Female with Schizophrenia, Seizure disorder, CAD, who came to ER for evaluation of Probable syncope and seizure, History is limited as patient herself is a poor historian secondary to her schizophrenia. She cannot really give me a good history. Most of the history is obtained from the ambulance provider as well as ED nurse and [facility] from [facility]. Per report apparently patient was getting to stand up and she looked like she was falling asleep while standing and she had a syncopal episode. Apparently she did hit her head when she fell and afterwards she possibly had a seizure. She also defecated on herself. Per her report she apparently is noncompliant with her medications especially the seizure medications. Unclear as to why. She does live in assisted living facility. She is a full code. She states that she has pain "everywhere ". She does not appear to be in a lot of pain however and is able to move all joints with no obvious sign of acute disease. She does appear to have some bruising on the back of the head. She smells of feces. Again history is limited. She does take aspirin but no other blood thinners. Of note per ambulance patient did have some low blood pressures and her highest systolic was 95 with IV fluids. seen in Emergency room stable Lethargic but easy to arouse. 02/14: Seen in her bedroom discussed with patient, nurse and Physical Therapy specialist Mr. Oneil patient at baseline, improving her dehydration, seen by Neurology and Psychiatry no changes to her medications will continue Home medicines and try to discharge in am tomorrow. Objective Vital Signs Date Time Temp Pulse Resp B/P (MAP) Pulse Ox O2 Delivery O2 Flow Rate FiO2 02/14/17 07:53 98.3 101 17 162/77 (105) 98 02/14/17 07:44 95 21 02/14/17 05:32 93 02/14/17 00:37 98.5 67 20 150/49 (82) 95 02/13/17 23:53 94 02/13/17 21:58 98.1 89 18 161/81 (107) 95 02/13/17 17:50 75 02/13/17 17:20 97.7 91 18 138/72 (94) 92 02/13/17 16:38 97.8 83 16 123/66 (85) 99 02/13/17 14:33 97.8 76 17 125/68 (87) 100 Room Air 02/13/17 12:20 81 18 95/58 (70) 86 18 113/64 (80) 02/13/17 12:03 18 100 Room Air 02/13/17 12:02 97.8 88 16 108/53 (71) 100 02/13/17 12:02 89 17 100 Room Air I/O 02/13/17 02/13/17 02/13/17 02/14/17 02/14/17 02/14/17 07:00 15:00 23:00 07:00 15:00 23:00 Intake Total 1000 ml Balance 1000 ml Intake IV Total 1000 ml Result Diagram: 02/13/17 1208 02/14/17 0645 Imaging Last Impressions Head CT 02/13/17 1201 Signed Impressions: Service Date/Time: Monday, February 13, 2017 14:10 - CONCLUSION: Stable and normal for age intracranial contents. Sinus disease with opacification of multiple ethmoid air cells and air-fluid levels posteriorly in the bilateral maxillary sinuses. Jack Jacobo MD Chest X-Ray 02/13/17 1201 Signed Impressions: Service Date/Time: Monday, February 13, 2017 12:32 - CONCLUSION: No acute disease. No significant change has occurred. Jack Jacobo MD Cervical Spine CT 02/13/17 1201 Signed Impressions: Service Date/Time: Monday, February 13, 2017 14:10 - CONCLUSION: No fracture subluxation. Marshall Willingham MD Lumbar Spine X-Ray 02/13/17 0000 Signed Impressions: Service Date/Time: Monday, February 13, 2017 13:24 - CONCLUSION: Degenerative changes without fracture. Marshall Willingham MD Hip and Pelvis X-Ray 02/13/17 0000 Signed Impressions: Service Date/Time: Monday, February 13, 2017 13:18 - CONCLUSION: No acute fracture. Marshall Willingham MD Hip X-Ray 02/13/17 0000 Signed Impressions: Service Date/Time: Monday, February 13, 2017 13:18 - CONCLUSION: No acute fracture. Marshall Willingham MD Procedures None Other Results Laboratory Tests Test 02/13/17 12:08 02/14/17 00:13 02/14/17 06:45 White Blood Count 7.0 TH/MM3 Red Blood Count 4.49 MIL/MM3 Hemoglobin 13.6 GM/DL Hematocrit 41.5 % Mean Corpuscular Volume 92.4 FL Mean Corpuscular Hemoglobin 30.2 PG Mean Corpuscular Hemoglobin Concent 32.7 % Red Cell Distribution Width 14.1 % Platelet Count 221 TH/MM3 Mean Platelet Volume 7.2 FL Neutrophils (%) (Auto) 75.1 % Lymphocytes (%) (Auto) 11.4 % Monocytes (%) (Auto) 10.3 % Eosinophils (%) (Auto) 2.6 % Basophils (%) (Auto) 0.6 % Neutrophils # (Auto) 5.3 TH/MM3 Lymphocytes # (Auto) 0.8 TH/MM3 Monocytes # (Auto) 0.7 TH/MM3 Eosinophils # (Auto) 0.2 TH/MM3 Basophils # (Auto) 0.0 TH/MM3 CBC Comment DIFF FINAL Differential Comment Prothrombin Time 10.8 SEC Prothromb Time International Ratio 1.0 RATIO Activated Partial Thromboplast Time 22.6 SEC Urine Color YELLOW Urine Turbidity HAZY Urine pH 5.5 Urine Specific [place] 1.013 Urine Protein 30 mg/dL Urine Glucose (UA) NEG mg/dL Urine Ketones NEG mg/dL Urine Occult Blood NEG Urine Nitrite NEG Urine Bilirubin NEG Urine Urobilinogen 2.0 MG/DL Urine Leukocyte Esterase NEG Urine RBC LESS THAN 1 /hpf Urine WBC 1 /hpf Urine Squamous Epithelial Cells 1 /hpf Urine Bacteria RARE /hpf Urine Hyaline Casts 22 /lpf Urine Mucus FEW /lpf Microscopic Urinalysis Comment CATH-CULTURE IND Stool C. difficile Toxin (PCR) NEGATIVE Stl C. difficile Toxin Epiderm 027 PRESUMPTIVE NEGATIVE Blood Urea Nitrogen 9 MG/DL 8 MG/DL Creatinine 1.62 MG/DL 1.27 MG/DL Random Glucose 111 MG/DL 76 MG/DL Total Protein 6.8 GM/DL 6.7 GM/DL Albumin 2.8 GM/DL 2.9 GM/DL Calcium Level 8.6 MG/DL 8.6 MG/DL Magnesium Level 2.2 MG/DL Alkaline Phosphatase 81 U/L 89 U/L Aspartate Amino Transf (AST/SGOT) 8 U/L 9 U/L Alanine Aminotransferase (ALT/SGPT) 12 U/L 10 U/L Total Bilirubin 0.2 MG/DL 0.3 MG/DL Sodium Level 142 MEQ/L 141 MEQ/L Potassium Level 4.2 MEQ/L 4.0 MEQ/L Chloride Level 110 MEQ/L 110 MEQ/L Carbon Dioxide Level 25.8 MEQ/L 27.3 MEQ/L Creatine Kinase MB 1.6 NG/ML Total Creatine Kinase 132 U/L Troponin I LESS THAN 0.02 NG/ML Anion Gap 4 MEQ/L Estimat Glomerular Filtration Rate 50 ML/MIN Objective Remarks GENERAL: Obese patient SKIN: Warm and dry. HEAD: Atraumatic. Normocephalic. EYES: Pupils equal and round. No scleral icterus. No injection or drainage. ENT: No nasal bleeding or discharge. Mucous membranes pink and moist. Tongue is midline. No uvula deviation. NECK: Trachea midline. No JVD. CARDIOVASCULAR: Regular rate and rhythm. No murmurs, S3, S4. RESPIRATORY: No accessory muscle use. Clear to auscultation. Breath sounds equal bilaterally. GASTROINTESTINAL: Abdomen soft, non-tender, nondistended. Hepatic and splenic margins not palpable. MUSCULOSKELETAL: Extremities without clubbing, cyanosis, or edema. No obvious deformities. Full range of motion of the upper and lower extremities but no obvious sign of deformity. 2+ pulses bilaterally. No obvious lumbar, thoracic spine tenderness to palpation. NEUROLOGICAL: alert, non oriented PSYCHIATRIC: difficult to evaluate Medications and IVs Current Medications Medications (Trade) Dose Ordered Sig/Kade Route Start Time Stop Time Status Last Admin Sodium Chloride 1,000 ml @ 83 mls/hr Q12H3M IV 02/13/17 17:00 02/14/17 05:03 (NS Flush) 2 ml UNSCH PRN IV FLUSH 02/13/17 15:30 (NS Flush) 2 ml BID IV FLUSH 02/13/17 21:00 02/14/17 10:32 (Tylenol) 650 mg Q4H PRN PO 02/13/17 15:30 (Zofran Inj) 4 mg Q6H PRN IVP 02/13/17 15:30 (Narcan Inj) 0.4 mg UNSCH PRN IV PUSH 02/13/17 15:30 (Misty-Colace) 1 tab BID PO 02/13/17 21:00 02/14/17 10:31 (Milk Of Magnesia Liq) 30 ml Q12H PRN PO 02/13/17 15:30 (Senokot) 17.2 mg Q12H PRN PO 02/13/17 15:30 (Dulcolax Supp) 10 mg DAILY PRN RECTAL 02/13/17 15:30 (Lactulose Liq) 30 ml DAILY PRN PO 02/13/17 15:30 (NovoLIN R SUPPLEMENTAL SCALE) 1 ACHS SLIDING SCALE SQ 02/13/17 17:00 (Aspirin Chew) 81 mg DAILY CHEW 02/14/17 09:00 02/14/17 10:31 (Vitamin D3) 1,000 units DAILY PO 02/14/17 09:00 02/14/17 10:30 (CeleXA) 20 mg DAILY PO 02/14/17 09:00 02/14/17 10:31 (Trusopt 2% Opth Soln) 1 drop TID LEFT EYE 02/13/17 18:00 02/14/17 10:33 (Lasix) 20 mg DAILY PO 02/14/17 09:00 02/14/17 10:31 (Keppra) 750 mg BID PO 02/13/17 21:00 02/14/17 10:32 (Singulair) 10 mg HS PO 02/13/17 21:00 (Pill Splitter) 1 ea UNSCH PRN OTHER 02/13/17 17:15 A/P Assessment and Plan 1. Syncope and probable seizure disorder, will hold her home medicines and follow Psychiatry and Neurology specialist recommendations asked for PT, OT and Speech therapy evaluation, Sheet Taker following continue supportive care. IV fluids, improving renal failure and Encephalopathy. as per neurology continue his Home medicines. 2. COPD on Bronchodilator, Mucolytic incentive spirometry 3. Depression/Schizophrenia/Dementia asked for lamotrigine and levetiracetam, as per Psychiatry specialist to continue home medicines. 4. Hyperlipidemia by history 5. CVA by history 6. DM II continue sliding scale. 7. Hypertension at this time Hypotensive on hold antihypertensives. 8. acute kidney injury IV fluids Improving. DVT prophylaxis Heparin. Discussed Condition With patient and nurse. Discharge Planning Expected in am tomorrow. Sudheer Archuleta MD Feb 14, 2017 11:18
--- NOTE | 2017-02-14 12:05 | MB ---
cc: DULCE BELLAMY M.D. DATE OF CONSULTATION: 02/14/2017 HISTORY OF PRESENT ILLNESS She is a 77-year-old woman seen in neurological consultation in regards to possible seizures. Apparently, there is a history of a seizure disorder. She is unable to provide any significant information. Apparently, she lives in an assisted living facility and reportedly she was standing up and looked like she was falling asleep and she had a syncopal episode with some possible associated seizure activity, hit her head and defecated on herself. Apparently the patient is noncompliant with medication. She had been complaining of some pain diffusely. There is a history of schizoaffective disorder, coronary artery disease. MEDICATIONS Reported medications include - 1. Aspirin. 2. Citalopram. 3. Cardizem. 4. Keppra 750 twice a day. 5. Lamotrigine 150 twice a day. 6. Lasix. 7. Isosorbide. NEUROLOGIC EXAMINATION Exam shows the patient to be awake, no distress, no obvious pain. She is obese. Speech is difficult to be comprehended and limited to some simple words or short phrases, often answered that she did not know. At some point, after much coaching she seemed to have some orientation to her age. She is possibly oriented to place though difficult to say. She followed simple commands, moved all four extremities, nothing obviously focal. No evidence of tongue injury. Reflexes were trace responses versus absent. Plantar responses flexor. ASSESSMENT 1. Seizure versus syncope. 2. Schizoaffective disorder. 3. Probable dementia. PLAN As discussed, the patient herself is unable to provide history. Would continue her current Keppra and Lamictal medications. Doses as discussed above. Psychiatric medicine. I will follow the neurological course and I will obtain an EEG. The CT brain was unremarkable. Lab work was noted. CBC unremarkable and chemistry showing mild change of probable no major consequence. The creatinine is 1.62. Thank you for asking us to assist in her care. MD SILVIANO Murphy/BJJodi /10:37 AM /11:50 AM
--- NOTE | 2017-02-14 13:02 | PD.PSY.CON ---
Provisional Diagnosis Admission Date Feb 13, 2017 at 15:25 [place]. History of schizophrenia History of Present Illness Service Psychiatry Consult Requested By ED attending physician Reason for Consult No reason provided Primary Care Physician Tang Ansari MD HPI Patient seen. No significant clinical evidence for change in treatment from psychiatric standpoint. Review of Systems Except as stated in HPI: all other systems reviewed are Neg Past Family Social History Coded Allergies: ramipril (Verified Allergy, Mild, ANGIOEDEMA, 02/13/17) Reported Medications Cholecalciferol (Vitamin D-1000) 1,000 Unit Tab, 1000 UNITS PO DAILY for Nutritional Supplement, #1 BOTTLE 0 Refills 02/13/17 Liraglutide Inj (Victoza Inj) 18 Mg/3 Ml Pen, 1.8 MG SQ DAILY, #1 PEN 0 Refills 02/13/17 Dorzolamide Opth Drops (Trusopt Opth Drops) 2% Soln, 1 DROP LEFT EYE TID for Glaucoma, #1 BOTTLE 0 Refills 02/13/17 Montelukast (Singulair) 10 Mg Tab, 10 MG PO HS, #30 TAB 0 Refills 02/13/17 Sennosides-Docusate Sodium (Senna-S 8.6-50 mg) 8.6 Mg-50 Mg Tab 02/13/17 Risperidone (Risperdal) 3 Mg Tab, 3 MG PO Q12HR, #60 TAB 0 Refills 02/13/17 Risperidone Inj (Risperdal Consta Inj) 50 Mg/2 Ml Inj, 50 MG IM Q14D, #2 VIAL 0 Refills 02/13/17 Quetiapine (Quetiapine) 400 Mg Tab, 400 MG PO HS, #30 TAB 0 Refills 02/13/17 Metformin (Metformin) 850 Mg Tab, 850 MG PO BIDPC for Blood Sugar Management, TAB 0 Refills With meals 02/13/17 Melatonin (Melatonin) 5 Mg Tab, 3 MG PO HS for Provide Good Sleep, TAB 0 Refills 02/13/17 Furosemide (Lasix) 20 Mg Tab, 20 MG PO DAILY, #30 TAB 0 Refills 02/13/17 Lamotrigine (Lamictal) 150 Mg Tab, 150 MG PO BID for Control Seizures, #60 TAB 0 Refills 02/13/17 Levetiracetam (Keppra) 750 Mg Tab, 750 MG PO BID for Control Seizures, #60 TAB 0 Refills 02/13/17 Isosorbide Mononitrate (Isosorbide Mononitrate) 20 Mg Tab, 60 MG PO DAILY for Prevent Chest Pain, #60 TAB 0 Refills Take 2 doses 7 hours apart. 02/13/17 Citalopram (Citalopram) 20 Mg Tab, 20 MG PO DAILY for Control Depression, #30 TAB 0 Refills 02/13/17 Diltiazem (Cardizem) 120 Mg Tab, 120 MG PO BID for Angina, #120 TAB 0 Refills 02/13/17 Aspirin (Aspirin) 81 Mg Chew, 81 MG CHEW DAILY, TAB 0 Refills 02/13/17 Acetaminophen (Tylenol) 325 Mg Tab, 650 MG PO Q6H Y for PAIN SCALE 1 TO 4, TAB 0 Refills 02/13/17 [abh topical gel ] No Conflict Check, TOPICAL Q6HR for Anxiety 02/13/17 Current Medications Medications (Trade) Dose Ordered Sig/Kade Route Start Time Stop Time Status Last Admin Sodium Chloride 1,000 ml @ 83 mls/hr Q12H3M IV 02/13/17 17:00 02/14/17 05:03 (NS Flush) 2 ml UNSCH PRN IV FLUSH 02/13/17 15:30 (NS Flush) 2 ml BID IV FLUSH 02/13/17 21:00 02/14/17 10:32 (Tylenol) 650 mg Q4H PRN PO 02/13/17 15:30 (Zofran Inj) 4 mg Q6H PRN IVP 02/13/17 15:30 (Narcan Inj) 0.4 mg UNSCH PRN IV PUSH 02/13/17 15:30 (Misty-Colace) 1 tab BID PO 02/13/17 21:00 02/14/17 10:31 (Milk Of Magnesia Liq) 30 ml Q12H PRN PO 02/13/17 15:30 (Senokot) 17.2 mg Q12H PRN PO 02/13/17 15:30 (Dulcolax Supp) 10 mg DAILY PRN RECTAL 02/13/17 15:30 (Lactulose Liq) 30 ml DAILY PRN PO 02/13/17 15:30 (NovoLIN R SUPPLEMENTAL SCALE) 1 ACHS SLIDING SCALE SQ 02/13/17 17:00 (Aspirin Chew) 81 mg DAILY CHEW 02/14/17 09:00 02/14/17 10:31 (Vitamin D3) 1,000 units DAILY PO 02/14/17 09:00 02/14/17 10:30 (CeleXA) 20 mg DAILY PO 02/14/17 09:00 02/14/17 10:31 (Trusopt 2% Opth Soln) 1 drop TID LEFT EYE 02/13/17 18:00 02/14/17 10:33 (Lasix) 20 mg DAILY PO 02/14/17 09:00 02/14/17 10:31 (Keppra) 750 mg BID PO 02/13/17 21:00 02/14/17 10:32 (Singulair) 10 mg HS PO 02/13/17 21:00 (Pill Splitter) 1 ea UNSCH PRN OTHER 02/13/17 17:15 Physical Exam Vital Signs Vital Signs Date Time Temp Pulse Resp B/P (MAP) Pulse Ox O2 Delivery O2 Flow Rate FiO2 02/14/17 11:24 98.8 97 17 162/77 (105) 96 02/14/17 07:44 21 02/13/17 14:33 Room Air Lab Results Test 02/13/17 19:30 02/14/17 00:13 02/14/17 06:45 Total Creatine Kinase 133 U/L 132 U/L Troponin I LESS THAN 0.02 NG/ML LESS THAN 0.02 NG/ML Blood Urea Nitrogen 8 MG/DL Creatinine 1.27 MG/DL Random Glucose 76 MG/DL Total Protein 6.7 GM/DL Albumin 2.9 GM/DL Calcium Level 8.6 MG/DL Alkaline Phosphatase 89 U/L Aspartate Amino Transf (AST/SGOT) 9 U/L Alanine Aminotransferase (ALT/SGPT) 10 U/L Total Bilirubin 0.3 MG/DL Sodium Level 141 MEQ/L Potassium Level 4.0 MEQ/L Chloride Level 110 MEQ/L Carbon Dioxide Level 27.3 MEQ/L Anion Gap 4 MEQ/L Estimat Glomerular Filtration Rate 50 ML/MIN Date/Time Source Procedure Growth Status 02/13/17 12:08 Urine Catheterized Urine Urine Culture Pending Received Mental Status Examination Speech: Unremarkable Orientation: x3 Memory: Unremarkable Thought Process: Organized, Goal Directed Thought Content: Unremarkable Hallucination Type: None Attention and Concentration: Good Suicidal Ideation: No Previous Suicide Attempts: No Homicidal Ideation: No Previous Homicide Attempts: No Insight: Fair Judgment: WNL Affect: Good Mood: Appropriate Motor Activity: Normal gait Assessment & Plan Problem List: (1) Schizophrenia, history of multiple episodes, in full remission ICD Codes: F20.9 - Schizophrenia, unspecified Assessment & Plan Estimated LOS: days no changes in psychotropic medications recommended. Devyn Cantu MD Feb 14, 2017 13:02
[2017-02-14 14:10] LABS: LEVETIRACETAM 31.7 mcg/mL (12.0 - 46.0)
--- NOTE | 2017-02-14 16:32 | EKG ---
Date Performed: 02/13/2017 Time Performed: 12:09:04 PTAGE: 71 years EKG: Sinus rhythm ST ELEVATION, PROBABLY EARLY REPOLARIZATION Compared to previous tracing, The ST elevation, most com patible with early repolarization is new. BORDERLINE ECG PREVIOUS TRACING : 02/13/2017 08.42 DOCTOR: Devyn Hussein Interpretating Date/Time 02/14/2017 16:31:18
[2017-02-14] MEDS ORDERED: QUEtiapine FUMARATE 200 MG TAB PO SCH (21:00)
--- NOTE | 2017-02-14 21:47 | MG ---
cc: DULCE MONTES MD Lab No: Date: 02/14/17 Age: 71 Sex: F Race: REFERRING PHYSICIAN Dr. Jarvis. An EEG was obtained on this 71-year-old patient being evaluated for encephalopathy. The patient is described as having had a syncopal episode with possible seizure. This EEG shows a mixture of some alpha with beta rhythms diffusely. There is artifact. The patient is drowsy intermittently. There are more widespread beta and theta activity during the drowsiness recording. Photic stimulation shows some minimal driving response. INTERPRETATION Probably normal awake and drowsy EEG. Dulce Montes MD [facility]/ /9:06 PM /9:38 PM
[2017-02-14] MEDS: DILTIAZEM-CD 120 MG CAP ER PO SCH (23:15)
[2017-02-14] MEDS: risperiDONE 3 MG TAB PO SCH (23:19)
[2017-02-14] MEDS: lamoTRIgine 100 MG TAB PO SCH (23:24)
[2017-02-14] MEDS: MONTELUKAST SODIUM 10 MG TAB PO SCH (23:26)
[2017-02-15] VITALS (8 sets, daily range): BP systolic 136–157; BP diastolic 60–91; PULSE 72–109; RESP 18–20; TEMP 98–98.3; O2SAT 93–96
[2017-02-15] MEDS: SODIUM CHLOR 0.9% 1000 ML INJ 1,000 ML IV SCH (06:09)
[2017-02-15] MEDS ORDERED: ISOSORBIDE MONONITRATE 60 MG TAB PO SCH (07:00)
[2017-02-15 07:10] LABS: BICARBONATE 27.2 MEQ/L (21.0-32.0); POTASSIUM 3.5 MEQ/L (3.5-5.1)
[2017-02-15] MEDS: INSULIN NovoLIN REGULAR SUPPLEMENTAL SCALE SQ SCH ×2 (08:45→12:19)
[2017-02-15] MEDS: ASPIRIN 81 MG CHEW TAB CHEW SCH (10:27)
[2017-02-15] MEDS: CHOLECALCIFEROL (VIT D3) 1000 UNIT TAB PO SCH (10:27)
[2017-02-15] MEDS: levETIRAcetam 250 MG TAB PO SCH (10:27)
[2017-02-15] MEDS: DILTIAZEM-CD 120 MG CAP ER PO SCH (10:27)
[2017-02-15] MEDS: CITALOPRAM HYDROBROMIDE 20 MG TAB PO SCH (10:28)
[2017-02-15] MEDS: DOCUSATE SODIUM 50 MG/SENNA 8.6 MG TAB PO SCH (10:28)
[2017-02-15] MEDS: FUROSEMIDE 20 MG TAB PO SCH (10:28)
[2017-02-15] MEDS: lamoTRIgine 100 MG TAB PO SCH (10:28)
[2017-02-15] MEDS: risperiDONE 3 MG TAB PO SCH (10:28)
[2017-02-15] MEDS: SODIUM CHLORIDE 0.9% FLUSH 10 ML FLUSH IV FLUSH SCH (10:29)
[2017-02-15] MEDS: DORZOLAMIDE 2% OPTH SOLN 200 DROP/10 ML BTLO LEFT EYE SCH ×2 (10:30→13:00)
--- NOTE | 2017-02-15 10:52 | HHI.PR ---
Review/Management Daily Summary 02/15 very much stable admits osme diffuse pain eating well no addtl neuro intervention, call prn Subjective Subjective Comments No acute events reported No headache No chest pain No dyspnea Active Medications Current Medications Medications (Trade) Dose Ordered Sig/Kade Route Start Time Stop Time Status Last Admin Sodium Chloride 1,000 ml @ 83 mls/hr Q12H3M IV 02/13/17 17:00 02/15/17 06:09 (NS Flush) 2 ml UNSCH PRN IV FLUSH 02/13/17 15:30 (NS Flush) 2 ml BID IV FLUSH 02/13/17 21:00 02/15/17 10:29 (Tylenol) 650 mg Q4H PRN PO 02/13/17 15:30 (Zofran Inj) 4 mg Q6H PRN IVP 02/13/17 15:30 (Narcan Inj) 0.4 mg UNSCH PRN IV PUSH 02/13/17 15:30 (Misty-Colace) 1 tab BID PO 02/13/17 21:00 02/15/17 10:28 (Milk Of Magnesia Liq) 30 ml Q12H PRN PO 02/13/17 15:30 (Senokot) 17.2 mg Q12H PRN PO 02/13/17 15:30 (Dulcolax Supp) 10 mg DAILY PRN RECTAL 02/13/17 15:30 (Lactulose Liq) 30 ml DAILY PRN PO 02/13/17 15:30 (NovoLIN R SUPPLEMENTAL SCALE) 1 ACHS SLIDING SCALE SQ 02/13/17 17:00 (Aspirin Chew) 81 mg DAILY CHEW 02/14/17 09:00 02/15/17 10:27 (Vitamin D3) 1,000 units DAILY PO 02/14/17 09:00 02/15/17 10:27 (CeleXA) 20 mg DAILY PO 02/14/17 09:00 02/15/17 10:28 (Trusopt 2% Opth Soln) 1 drop TID LEFT EYE 02/13/17 18:00 02/15/17 10:30 (Lasix) 20 mg DAILY PO 02/14/17 09:00 02/15/17 10:28 (Keppra) 750 mg BID PO 02/13/17 21:00 02/15/17 10:27 (Singulair) 10 mg HS PO 02/13/17 21:00 02/14/17 23:26 (Pill Splitter) 1 ea UNSCH PRN OTHER 02/13/17 17:15 (Imdur) 60 mg DAILY@07 PO 02/15/17 07:00 02/15/17 06:12 (Cardizem Cd) 120 mg BID PO 02/14/17 21:00 02/15/17 10:27 (LaMICtal) 150 mg Q12HR PO 02/14/17 21:00 02/15/17 10:28 (SEROquel) 400 mg HS PO 02/14/17 21:00 02/14/17 23:20 (risperDAL) 3 mg Q12HR PO 02/14/17 21:00 02/15/17 10:28 Allergies Allergies Coded Allergies ramipril (Verified Allergy, Mild, ANGIOEDEMA, 02/13/17) Review of Systems All other ROS: ROS reviewed as documented in chart Exam I&O / VS Vital Signs Date Time Temp Pulse Resp B/P (MAP) Pulse Ox O2 Delivery O2 Flow Rate FiO2 02/15/17 07:37 98.3 109 20 136/91 (106) 96 02/15/17 04:28 89 02/15/17 03:55 98.2 84 18 157/91 (113) 95 02/15/17 00:05 95 02/14/17 23:59 98.6 92 18 132/67 (88) 99 02/14/17 21:00 95 21 02/14/17 20:24 98.1 99 18 162/87 (112) 95 02/14/17 19:04 100 02/14/17 17:00 86 02/14/17 15:18 98.2 97 17 168/82 (110) 95 02/14/17 13:25 93 02/14/17 11:24 98.8 97 17 162/77 (105) 96 General: Alert and Oriented, No acute distress Cardiology: Normal rate Musculoskeletal: ROM Neurologic: Alert, Normal motor, No focal defects, CN II-XII intact, Gag reflex normal, Normal DTR's Psychiatric: Cooperative Objective Micro and Labs Laboratory Tests Test 02/15/17 06:15 Blood Urea Nitrogen 9 Creatinine 1.20 Random Glucose 79 Calcium Level 8.7 Magnesium Level 2.0 Sodium Level 142 Potassium Level 3.5 Chloride Level 109 Carbon Dioxide Level 27.2 Anion Gap 6 Estimat Glomerular Filtration Rate 53 Date/Time Source Procedure Growth Status 02/13/17 12:08 Urine Catheterized Urine Urine Culture - Final NO GROWTH IN 48 HOURS. Complete Honorio Montes MD Feb 15, 2017 10:51
--- NOTE | 2017-02-15 12:32 | HHI.PR ---
Subjective Remarks This is a pleasant 71 y/o Female with Schizophrenia, Seizure disorder, CAD, who came to ER for evaluation of Probable syncope and seizure, History is limited as patient herself is a poor historian secondary to her schizophrenia. She cannot really give me a good history. Most of the history is obtained from the ambulance provider as well as ED nurse and paperwork from the skilled nursing. Per report apparently patient was getting to stand up and she looked like she was falling asleep while standing and she had a syncopal episode. Apparently she did hit her head when she fell and afterwards she possibly had a seizure. She also defecated on herself. Per her report she apparently is noncompliant with her medications especially the seizure medications. Unclear as to why. She does live in assisted living facility. She is a full code. She states that she has pain "everywhere ". She does not appear to be in a lot of pain however and is able to move all joints with no obvious sign of acute disease. She does appear to have some bruising on the back of the head. She smells of feces. Again history is limited. She does take aspirin but no other blood thinners. Of note per ambulance patient did have some low blood pressures and her highest systolic was 95 with IV fluids. seen in Emergency room stable Lethargic but easy to arouse. 02/14: Seen in her bedroom discussed with patient, nurse and Physical Therapy specialist Mr. Oneil patient at baseline, improving her dehydration, seen by Neurology and Psychiatry no changes to her medications will continue Home medicines and try to discharge in am tomorrow. 02/15: Stable in her bedroom, discussed with nurse Patient at baseline, no nausea, vomit or diarrhea, no changes as per Neurology or Psychiatry. okay to discharge to [facility] Objective Vital Signs Date Time Temp Pulse Resp B/P (MAP) Pulse Ox O2 Delivery O2 Flow Rate FiO2 02/15/17 11:35 98.0 72 20 149/76 (100) 94 02/15/17 07:37 98.3 109 20 136/91 (106) 96 02/15/17 07:30 84 02/15/17 04:28 89 02/15/17 03:55 98.2 84 18 157/91 (113) 95 02/15/17 00:05 95 02/14/17 23:59 98.6 92 18 132/67 (88) 99 02/14/17 21:00 95 21 02/14/17 20:24 98.1 99 18 162/87 (112) 95 02/14/17 19:04 100 02/14/17 17:00 86 02/14/17 15:18 98.2 97 17 168/82 (110) 95 02/14/17 13:25 93 I/O 02/14/17 02/14/17 02/14/17 02/15/17 02/15/17 02/15/17 07:00 15:00 23:00 07:00 15:00 23:00 Intake Total 500 ml Balance 500 ml Intake Oral 500 ml # Voids 3 Result Diagram: 02/13/17 1208 02/15/17 0615 Imaging Last Impressions Head CT 02/13/17 1201 Signed Impressions: Service Date/Time: Monday, February 13, 2017 14:10 - CONCLUSION: Stable and normal for age intracranial contents. Sinus disease with opacification of multiple ethmoid air cells and air-fluid levels posteriorly in the bilateral maxillary sinuses. Jack Jacobo MD Chest X-Ray 02/13/17 1201 Signed Impressions: Service Date/Time: Monday, February 13, 2017 12:32 - CONCLUSION: No acute disease. No significant change has occurred. Jack Jacobo MD Cervical Spine CT 02/13/17 1201 Signed Impressions: Service Date/Time: Monday, February 13, 2017 14:10 - CONCLUSION: No fracture subluxation. Marshall Willingham MD Lumbar Spine X-Ray 02/13/17 0000 Signed Impressions: Service Date/Time: Monday, February 13, 2017 13:24 - CONCLUSION: Degenerative changes without fracture. Marshall Willingham MD Hip and Pelvis X-Ray 02/13/17 0000 Signed Impressions: Service Date/Time: Monday, February 13, 2017 13:18 - CONCLUSION: No acute fracture. Marshall Willingham MD Hip X-Ray 02/13/17 0000 Signed Impressions: Service Date/Time: Monday, February 13, 2017 13:18 - CONCLUSION: No acute fracture. Marshall Willingham MD Procedures None Other Results Laboratory Tests Test 02/13/17 12:08 02/14/17 00:13 02/14/17 06:45 02/15/17 06:15 White Blood Count 7.0 TH/MM3 Red Blood Count 4.49 MIL/MM3 Hemoglobin 13.6 GM/DL Hematocrit 41.5 % Mean Corpuscular Volume 92.4 FL Mean Corpuscular Hemoglobin 30.2 PG Mean Corpuscular Hemoglobin Concent 32.7 % Red Cell Distribution Width 14.1 % Platelet Count 221 TH/MM3 Mean Platelet Volume 7.2 FL Neutrophils (%) (Auto) 75.1 % Lymphocytes (%) (Auto) 11.4 % Monocytes (%) (Auto) 10.3 % Eosinophils (%) (Auto) 2.6 % Basophils (%) (Auto) 0.6 % Neutrophils # (Auto) 5.3 TH/MM3 Lymphocytes # (Auto) 0.8 TH/MM3 Monocytes # (Auto) 0.7 TH/MM3 Eosinophils # (Auto) 0.2 TH/MM3 Basophils # (Auto) 0.0 TH/MM3 CBC Comment DIFF FINAL Differential Comment Prothrombin Time 10.8 SEC Prothromb Time International Ratio 1.0 RATIO Activated Partial Thromboplast Time 22.6 SEC Urine Color YELLOW Urine Turbidity HAZY Urine pH 5.5 Urine Specific [place] 1.013 Urine Protein 30 mg/dL Urine Glucose (UA) NEG mg/dL Urine Ketones NEG mg/dL Urine Occult Blood NEG Urine Nitrite NEG Urine Bilirubin NEG Urine Urobilinogen 2.0 MG/DL Urine Leukocyte Esterase NEG Urine RBC LESS THAN 1 /hpf Urine WBC 1 /hpf Urine Squamous Epithelial Cells 1 /hpf Urine Bacteria RARE /hpf Urine Hyaline Casts 22 /lpf Urine Mucus FEW /lpf Microscopic Urinalysis Comment CATH-CULTURE IND Stool C. difficile Toxin (PCR) NEGATIVE Stl C. difficile Toxin Epiderm 027 PRESUMPTIVE NEGATIVE Creatine Kinase MB 1.6 NG/ML Levetiracetam (Keppra) Level 31.7 mcg/mL Total Creatine Kinase 132 U/L Troponin I LESS THAN 0.02 NG/ML Blood Urea Nitrogen 8 MG/DL 9 MG/DL Creatinine 1.27 MG/DL 1.20 MG/DL Random Glucose 76 MG/DL 79 MG/DL Total Protein 6.7 GM/DL Albumin 2.9 GM/DL Calcium Level 8.6 MG/DL 8.7 MG/DL Alkaline Phosphatase 89 U/L Aspartate Amino Transf (AST/SGOT) 9 U/L Alanine Aminotransferase (ALT/SGPT) 10 U/L Total Bilirubin 0.3 MG/DL Sodium Level 141 MEQ/L 142 MEQ/L Potassium Level 4.0 MEQ/L 3.5 MEQ/L Chloride Level 110 MEQ/L 109 MEQ/L Carbon Dioxide Level 27.3 MEQ/L 27.2 MEQ/L Magnesium Level 2.0 MG/DL Anion Gap 6 MEQ/L Estimat Glomerular Filtration Rate 53 ML/MIN Objective Remarks GENERAL: Obese patient SKIN: Warm and dry. HEAD: Atraumatic. Normocephalic. EYES: Pupils equal and round. No scleral icterus. No injection or drainage. ENT: No nasal bleeding or discharge. Mucous membranes pink and moist. Tongue is midline. No uvula deviation. NECK: Trachea midline. No JVD. CARDIOVASCULAR: Regular rate and rhythm. No murmurs, S3, S4. RESPIRATORY: No accessory muscle use. Clear to auscultation. Breath sounds equal bilaterally. GASTROINTESTINAL: Abdomen soft, non-tender, nondistended. Hepatic and splenic margins not palpable. MUSCULOSKELETAL: Extremities without clubbing, cyanosis, or edema. No obvious deformities. Full range of motion of the upper and lower extremities but no obvious sign of deformity. 2+ pulses bilaterally. No obvious lumbar, thoracic spine tenderness to palpation. NEUROLOGICAL: alert, non oriented PSYCHIATRIC: difficult to evaluate Medications and IVs Current Medications Medications (Trade) Dose Ordered Sig/Kade Route Start Time Stop Time Status Last Admin Sodium Chloride 1,000 ml @ 83 mls/hr Q12H3M IV 02/13/17 17:00 02/15/17 06:09 (NS Flush) 2 ml UNSCH PRN IV FLUSH 02/13/17 15:30 (NS Flush) 2 ml BID IV FLUSH 02/13/17 21:00 02/15/17 10:29 (Tylenol) 650 mg Q4H PRN PO 02/13/17 15:30 (Zofran Inj) 4 mg Q6H PRN IVP 02/13/17 15:30 (Narcan Inj) 0.4 mg UNSCH PRN IV PUSH 02/13/17 15:30 (Misty-Colace) 1 tab BID PO 02/13/17 21:00 02/15/17 10:28 (Milk Of Magnesia Liq) 30 ml Q12H PRN PO 02/13/17 15:30 (Senokot) 17.2 mg Q12H PRN PO 02/13/17 15:30 (Dulcolax Supp) 10 mg DAILY PRN RECTAL 02/13/17 15:30 (Lactulose Liq) 30 ml DAILY PRN PO 02/13/17 15:30 (NovoLIN R SUPPLEMENTAL SCALE) 1 ACHS SLIDING SCALE SQ 02/13/17 17:00 (Aspirin Chew) 81 mg DAILY CHEW 02/14/17 09:00 02/15/17 10:27 (Vitamin D3) 1,000 units DAILY PO 02/14/17 09:00 02/15/17 10:27 (CeleXA) 20 mg DAILY PO 02/14/17 09:00 02/15/17 10:28 (Trusopt 2% Opth Soln) 1 drop TID LEFT EYE 02/13/17 18:00 02/15/17 10:30 (Lasix) 20 mg DAILY PO 02/14/17 09:00 02/15/17 10:28 (Keppra) 750 mg BID PO 02/13/17 21:00 02/15/17 10:27 (Singulair) 10 mg HS PO 02/13/17 21:00 02/14/17 23:26 (Pill Splitter) 1 ea UNSCH PRN OTHER 02/13/17 17:15 (Imdur) 60 mg DAILY@07 PO 02/15/17 07:00 02/15/17 06:12 (Cardizem Cd) 120 mg BID PO 02/14/17 21:00 02/15/17 10:27 (LaMICtal) 150 mg Q12HR PO 02/14/17 21:00 02/15/17 10:28 (SEROquel) 400 mg HS PO 02/14/17 21:00 02/14/17 23:20 (risperDAL) 3 mg Q12HR PO 02/14/17 21:00 02/15/17 10:28 A/P Assessment and Plan 1. Syncope and probable seizure disorder, will hold her home medicines and follow Psychiatry and Neurology specialist recommendations asked for PT, OT and Speech therapy evaluation, Patient Financial Counselor following continue supportive care. IV fluids, improving renal failure and Encephalopathy. as per neurology continue his Home medicines. 2. COPD on Bronchodilator, Mucolytic incentive spirometry 3. Depression/Schizophrenia/Dementia asked for lamotrigine and levetiracetam, as per Psychiatry specialist to continue home medicines. 4. Hyperlipidemia by history 5. CVA by history 6. DM II continue sliding scale. 7. Hypertension at this time Hypotensive on hold antihypertensives. 8. acute kidney injury IV fluids Improving. DVT prophylaxis Heparin. Discussed Condition With patient and nurse. Discharge Planning Discharge to [facility] today. Sudheer Archuleta MD Feb 15, 2017 12:32
--- NOTE | 2017-02-15 12:35 | HHI.DS ---
Discharge Summary Admission Date Feb 13, 2017 at 15:25 Discharge Date: Feb 15, 2017 Admitting Diagnosis (1) Dementia ICD Code: F03.90 - Dementia Diagnosis: Principal Status: Acute (2) Schizophrenia, unspecified ICD Code: F20.9 - Schizophrenia, unspecified Diagnosis: Principal Status: Acute (3) Syncope ICD Code: R55 - Syncope and collapse Diagnosis: Principal Status: Acute (4) Seizure ICD Code: R56.9 - Seizure Diagnosis: Principal Status: Acute Procedures None Brief History - From Admission This is a pleasant 71 y/o Female with Schizophrenia, Seizure disorder, CAD, who came to ER for evaluation of Probable syncope and seizure, History is limited as patient herself is a poor historian secondary to her schizophrenia. She cannot really give me a good history. Most of the history is obtained from the ambulance provider as well as ED nurse and paperwork from the sn[facility]. Per report apparently patient was getting to stand up and she looked like she was falling asleep while standing and she had a syncopal episode. Apparently she did hit her head when she fell and afterwards she possibly had a seizure. She also defecated on herself. Per her report she apparently is noncompliant with her medications especially the seizure medications. Unclear as to why. She does live in assisted living facility. She is a full code. She states that she has pain "everywhere ". She does not appear to be in a lot of pain however and is able to move all joints with no obvious sign of acute disease. She does appear to have some bruising on the back of the head. She smells of feces. Again history is limited. She does take aspirin but no other blood thinners. Of note per ambulance patient did have some low blood pressures and her highest systolic was 95 with IV fluids. seen in Emergency room stable Lethargic but easy to arouse. CBC/BMP: 02/13/17 1208 02/15/17 0615 Significant Findings Laboratory Tests Test 02/13/17 12:08 02/13/17 19:30 02/14/17 00:13 02/14/17 06:45 Neutrophils (%) (Auto) 75.1 % (16.0-70.0) Monocytes (%) (Auto) 10.3 % (0.0-8.0) Lymphocytes # (Auto) 0.8 TH/MM3 (1.0-4.8) Activated Partial Thromboplast Time 22.6 SEC (24.3-30.1) Urine Turbidity HAZY (CLEAR) Urine Protein 30 mg/dL (NEG-TRACE) Urine Bacteria RARE /hpf (NONE) Urine Mucus FEW /lpf (OCC) Creatinine 1.62 MG/DL (0.50-1.00) 1.27 MG/DL (0.50-1.00) Random Glucose 111 MG/DL (74-106) Albumin 2.8 GM/DL (3.4-5.0) 2.9 GM/DL (3.4-5.0) Aspartate Amino Transf (AST/SGOT) 8 U/L (15-37) 9 U/L (15-37) Chloride Level 110 MEQ/L (98-107) 110 MEQ/L (98-107) Estimat Glomerular Filtration Rate 38 ML/MIN (>89) 50 ML/MIN (>89) Troponin I LESS THAN 0.02 NG/ML LESS THAN 0.02 NG/ML LESS THAN 0.02 NG/ML Anion Gap 4 MEQ/L (5-15) Test 02/15/17 06:15 Creatinine 1.20 MG/DL (0.50-1.00) Chloride Level 109 MEQ/L (98-107) Estimat Glomerular Filtration Rate 53 ML/MIN (>89) Imaging Last Impressions Head CT 02/13/17 1201 Signed Impressions: Service Date/Time: Monday, February 13, 2017 14:10 - CONCLUSION: Stable and normal for age intracranial contents. Sinus disease with opacification of multiple ethmoid air cells and air-fluid levels posteriorly in the bilateral maxillary sinuses. Jack Jacobo MD Chest X-Ray 02/13/17 1201 Signed Impressions: Service Date/Time: Monday, February 13, 2017 12:32 - CONCLUSION: No acute disease. No significant change has occurred. Jack Jacobo MD Cervical Spine CT 02/13/17 1201 Signed Impressions: Service Date/Time: Monday, February 13, 2017 14:10 - CONCLUSION: No fracture subluxation. Marshall Willingham MD Lumbar Spine X-Ray 02/13/17 Signed Impressions: Service Date/Time: Monday, February 13, 2017 13:24 - CONCLUSION: Degenerative changes without fracture. Marshall Willingham MD Hip and Pelvis X-Ray 02/13/17 Signed Impressions: Service Date/Time: Monday, February 13, 2017 13:18 - CONCLUSION: No acute fracture. Marshall Willingham MD Hip X-Ray 02/13/17 Signed Impressions: Service Date/Time: Monday, February 13, 2017 13:18 - CONCLUSION: No acute fracture. Marshall Willingham MD PE at Discharge GENERAL: Obese patient, no acute distress. SKIN: Warm and dry. HEAD: Atraumatic. Normocephalic. EYES: Pupils equal and round. No scleral icterus. No injection or drainage. ENT: No nasal bleeding or discharge. Mucous membranes pink and moist. Tongue is midline. No uvula deviation. NECK: Trachea midline. No JVD. CARDIOVASCULAR: Regular rate and rhythm. No murmurs, S3, S4. RESPIRATORY: No accessory muscle use. Clear to auscultation. Breath sounds equal bilaterally. GASTROINTESTINAL: Abdomen soft, non-tender, nondistended. Hepatic and splenic margins not palpable. MUSCULOSKELETAL: Extremities without clubbing, cyanosis, or edema. No obvious deformities. Full range of motion of the upper and lower extremities but no obvious sign of deformity. 2+ pulses bilaterally. No obvious lumbar, thoracic spine tenderness to palpation. NEUROLOGICAL: alert, non oriented PSYCHIATRIC: difficult to evaluate Hospital Course This is a pleasant 71 y/o Female with Schizophrenia, Seizure disorder, CAD, who came to ER for evaluation of Probable syncope and seizure, History is limited as patient herself is a poor historian secondary to her schizophrenia. She cannot really give me a good history. Most of the history is obtained from the ambulance provider as well as ED nurse and paperwork from the snf. Per report apparently patient was getting to stand up and she looked like she was falling asleep while standing and she had a syncopal episode. Apparently she did hit her head when she fell and afterwards she possibly had a seizure. She also defecated on herself. Per her report she apparently is noncompliant with her medications especially the seizure medications. Unclear as to why. She does live in assisted living facility. She is a full code. She states that she has pain "everywhere ". She does not appear to be in a lot of pain however and is able to move all joints with no obvious sign of acute disease. She does appear to have some bruising on the back of the head. She smells of feces. Again history is limited. She does take aspirin but no other blood thinners. Of note per ambulance patient did have some low blood pressures and her highest systolic was 95 with IV fluids. seen in Emergency room stable Lethargic but easy to arouse. 02/14: Seen in her bedroom discussed with patient, nurse and Physical Therapy specialist Mr. Oneil patient at baseline, improving her dehydration, seen by Neurology and Psychiatry no changes to her medications will continue Home medicines and try to discharge in am tomorrow. 02/15: Stable in her bedroom, discussed with nurse Patient at baseline, no nausea, vomit or diarrhea, no changes as per Neurology or Psychiatry. okay to discharge to [facility] Assessment and Plan 1. Syncope and probable seizure disorder, will hold her home medicines and follow Psychiatry and Neurology specialist recommendations asked for PT, OT and Speech therapy evaluation, [place] following continue supportive care. IV fluids, improving renal failure and Encephalopathy. as per neurology continue his Home medicines. 2. COPD on Bronchodilator, Mucolytic incentive spirometry 3. Depression/Schizophrenia/Dementia asked for lamotrigine and levetiracetam, as per Psychiatry specialist to continue home medicines. 4. Hyperlipidemia by history 5. CVA by history 6. DM II continue sliding scale. 7. Hypertension at this time Hypotensive on hold antihypertensives. 8. acute kidney injury IV fluids Improving. DVT prophylaxis Heparin. Discussed Condition With patient and nurse. Discharge Planning Discharge to [facility] today. Pt Condition on Discharge: Stable Discharge Disposition: [facility] Discharge Time: <= 30 minutes Discharge Instructions DIET: Follow Instructions for: Heart Healthy Diet, Diabetic Diet Activities you can perform: Regular-No Restrictions Sudheer Archuleta MD Feb 15, 2017 12:35
== END 2017-02-15 17:49 | disposition home or self-care (01) ==
LOC: NEPE 11:50 → NEDA 15:25 → NEPHCDU 17:46
PROVIDERS: ADMIT Internal Medicine; ATTEND Internal Medicine
DX: F03.90 Unspecified dementia, unspecified severity, without behavioral disturbance, psychotic disturbance, mood disturbance, and anxiety (principal); F25.9 Schizoaffective disorder, unspecified; G40.909 Epilepsy, unspecified, not intractable, without status epilepticus; R55 Syncope and collapse; I95.9 Hypotension, unspecified; I10 Essential (primary) hypertension; F32.9 Major depressive disorder, single episode, unspecified; G93.40 Encephalopathy, unspecified; S00.03XA Contusion of scalp, initial encounter; E86.0 Dehydration; N17.9 Acute kidney failure, unspecified; E78.5 Hyperlipidemia, unspecified; J44.9 Chronic obstructive pulmonary disease, unspecified; E11.9 Type 2 diabetes mellitus without complications; I25.10 Atherosclerotic heart disease of native coronary artery without angina pectoris; R82.79 Other abnormal findings on microbiological examination of urine; I25.2 Old myocardial infarction; Z79.82 Long term (current) use of aspirin; Z86.73 Personal history of transient ischemic attack (TIA), and cerebral infarction without residual deficits; Z91.14 Patient's other noncompliance with medication regimen
CPT/HCPCS: 70450; 71010; 72110; 72125; 73502; 80048; 80053; 80175; 80177; 81001; 82550; 82552; 82948; 83735; 84484; 85025; 85610; 85730; 87086; 87493; 92610; 93005; 95819; 96360; 96361; 96374; 97162; 97166; 99285; G0378; G8987; G8988; G8996; G8997; G8998; J2405; J7030